=== PATIENT | male | born 1955 | race Caucasian/White ===

== ENCOUNTER 2017-05-16 11:45 | Emergency (ER) | payer OTHER ==
[~2017-05-16] VITALS: Ht 182.9 cm; Wt 63.5 kg
[~2017-05-16 11:45] MED LIST: APAP500 PO; DAILY VALUE1 EAC1 PO; HYDROCODONE-AP1 EAC6 PO; IBUPROFEN 200200 M1 PO; IBUPROFEN 400400 M2 PO; KEPPRA 500 MG500 M1 PO; LEVAQUIN 500 M500 M4 PO; NORCO 5-325 TA1 EACH PO
[2017-05-16] MEDS ORDERED: DOXYCYCLINE 10100 MG PO (13:18)
[2017-05-16 13:26] VITALS: BP 118/73
== END 2017-05-16 13:26 | disposition home or self-care (01) ==
LOC: ER 11:45
DX: R13.10 Dysphagia, unspecified (principal); J04.0 Acute laryngitis; J18.9 Pneumonia, unspecified organism; F17.210 Nicotine dependence, cigarettes, uncomplicated; R56.9 Unspecified convulsions; G89.29 Other chronic pain